=== PATIENT | male | born 1935 ===

== ENCOUNTER → 2017-11-24 | Outpatient (REF) ==
[2017-11-24 15:50] LABS: BASO % 0.5 % (0.0-2.0); EOS # 0.3 (0.0-0.7); EOS % 3.4 % (0-4.0); GRAN # 7.4 (1.4-6.5); GRAN % 83.5 % (42.2-75.2); LYMPH # 0.6 (1.2-3.4); LYMPH % 7.2 % (20.0-51.0); MEAN CELL VOLUME 92 fl (80.0-100.0); MEAN CORPUSCULAR HGB CONC 34 g/dl (33.0-37.0); MONO # 0.4 (0.1-0.6); MONO % 4.5 % (1.7-9.3); PLATELET COUNT 190 K/mm3 (130-400); REDCELL DISTRIBUTION WIDTH-CV 13.8 % (11.5-14.5)
[2017-11-24 15:54] LABS: HEMATOCRIT 33.2 % (42.0-52.0); HEMOGLOBIN 11.2 g/dl (13.5-18.0); MEAN CORPUSCULAR HEMOGLOBIN 31 pg (27.0-31.0)
== END ==
LOC: ZLAB.STJ 15:42
PROVIDERS: Internal Medicine
DX: I50.22 Chronic systolic (congestive) heart failure (principal)